=== PATIENT | male | born 2000 | race Caucasian/White ===

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

== ENCOUNTER 2018-01-26 06:53 | Emergency (ER) | payer SELFPAY ==
[~2018-01-26] VITALS: Ht 172.7 cm; Wt 77.3 kg
[~2018-01-26 06:53] MED LIST: PERCOCET 10/3251 TA1 PO
[2018-01-26 06:56] VITALS: BP 125/72; Ht 172.7 cm; Wt 77.3 kg
== END 2018-01-26 08:33 | disposition left against medical advice (07) ==
LOC: D.ER 06:53
DX: H92.02 Otalgia, left ear (principal)

== ENCOUNTER → 2018-04-12 17:36 | Outpatient (CLI) | payer BC ==
[2018-01-26 06:56] VITALS: BMI 25.9
== END | disposition home or self-care (01) ==
LOC: D.MRI 17:30
DX: M25.561 Pain in right knee (principal)

== ENCOUNTER 2018-07-27 05:00 | Day surgery (SDC) | payer BC ==
[2018-01-26 06:56] VITALS: Ht 172.7 cm; Wt 79.4 kg
[~2018-07-27] VITALS: Ht 172.7 cm; Wt 79.4 kg
[2018-07-27 05:21] VITALS: BP 114/75; BMI 26.6
[2018-07-27] MEDS ORDERED: PERCOCET 7.5/321 TAB PO (07:18)
[2018-07-27] MEDS ORDERED: TORADOL10 MG PO (07:18)
--- NOTE | 2018-07-27 10:55 | NUR ---
REC'D FROM RR. ALMAGUER AT BEDSIDE. DRESSING CDI TO LEG. ICE TO DRESSING. RLE NUMB FROM BLOCK. FL TRAY BROUGHT TO PT,
--- NOTE | 2018-07-27 11:20 | NUR ---
TOLERATED DIET. DENIES PAIN. WRITTEN AND VERBAL DC INST. GIVEN TO PT. VERBALIZED UNDERSTANDING. RX CALLED INTO [facility].
--- NOTE | 2018-07-27 11:50 | NUR ---
IV DC'D WITH CATHETER INTACT.
--- NOTE | 2018-07-27 12:00 | NUR ---
DC'D HOME WITH FAMILY VIA PRIVATE VEHICLE. TAKEN TO VEHICLE VIA WC. STABLE AT TIME OF DC.
--- NOTE | 2018-07-27 12:20 | OP ---
PATIENT NAME: DINESH SOLIS MEDICAL RECORD: [id number] :98 LOCATION:[facility] ADMISSION DATE: SURGEON: RUBEN DOW DO DATE OF OPERATION: 07/27/2018 PROCEDURE PERFORMED: Right knee ACL reconstruction with auto and allograft, auto hamstring and a medial meniscal repair. POSTOPERATIVE DIAGNOSIS: Right knee ACL complete rupture and tear and medial meniscal tear, posterior horn. INDICATIONS: Mr. Solis is a 18-year-old male, who had a skateboarding accident about a year ago. He came to my office in March and said he has had knee instability, was giving out on him with turning, and he got an MRI, which indeed showed with positive exam with positive Shaina's and medial joint line tenderness, medial meniscal tear and complete ACL rupture of the femoral condyle. The patient was wanting to wait since he is working to get the reconstruction done. I informed him that he is 18, he probably should get it done. He was aware of the risks and benefits including infection, bleeding, damage to nerves and vessels, need for further surgery, and he signed the consent. SURGEON: Ruben Dow DO DESCRIPTION OF PROCEDURE: The patient was given a block by anesthesia in the preoperative area, taken to the operative suite, laid in supine position. The right lower extremity was prepped and draped in sterile fashion. The left leg was placed in a well leg saini and well-padded brace under the thigh on the left. The right was placed in a leg saini, it was padded as well. He was then prepped and draped in sterile fashion. Time-out was performed. Everyone was in agreement with the correct side, site, patient and procedure. The patient received 2 grams of Ancef preoperatively. We then began getting the autograft over the pes anserine. Careful dissection was made down to the sartorial fascia. This was opened up. A very thin gracilis graft was taken, very small. Then, it was not adequate. We at that time got an anterior tib out of the freezer, but the semitendinosus graft was very good and adequate, so we mixed the two. The graft was prepared on the back table and sized to be an 11. The medial meniscal repair was done at the time as the scope began establishing a lateral portal first with #11 blade scalpel. The skin over the graft was cut with a 15 blade. An 11 blade scalpel was established through the lateral portal. Scope was then entered in the knee and up in suprapatellar pouch. No loose body was seen there. The medial and lateral gutters were inspected and no loose bodies were seen there. The knee was then brought from extension to flexion and the medial compartment was entered. The medial portal was then established with an 18-gauge spinal needle and 11-blade scalpel. Shaver was brought in and some of the fat pad was chewed away. Then, a probe was brought in. The leg had some valgus stress in order to get to the back of the knee and a meniscal tear was seen in the red-red zone. The FasT-Fix from [employer] was then brought in through the medial portal, it was curved one and it was repaired approximately 5 mm apart from each other. Anchors were deployed and had a very nice repair. This repair was checked with the probe and there was no movement of the medial meniscus at that time indicating good repair. We then prepared the notch, cleaned up the old ACL that was indeed torn off. There was no remnant of the ACL on the femur and then left a small remnant on the tibia to direct placement of the tunnel for the tibial tunnel. The guide was OPERATIVE REPORT [id number] DINESH SOLIS then brought in through the lateral portal. The camera was switched to the medial portal and a onel was made in the skin on the distal lateral thigh in order to do the FlipCutter. FlipCutter was then brought in through the guide and then brought back to approximately 25 mm in order to prepare the tunnel for the graft. A nitinol wire was then passed through that and grabbed out of the medial portal and secured with a hemostat. The tibial tunnel was then placed through the medial portal with viewing from the lateral portal and the guide was placed in at 55 degrees. Drill was then brought up through the guide through the graft site incision and first started, we reamed at 7 and then to an 11 for the graft and then the nitinol wire was brought down through the tibial tunnel. The graft was then passed up through the femur and the button flipped on the femur side and then it was toggled up to tighten up the graft. On the tibial side with the sutures, the graft bolt device was used. The graft was then tensioned with 30 cycles to the knee and brought into an extension and graft bolt first dilated with an 8 and then a 10. Graft bolt was then entered in and put into place and the screw. This did not get a great bite and so we used a SwiveLock with the excess sutures on the graft and put a 4.75 SwiveLock down into the tibia fixating the graft. I then went back up to the femur and tightened the toggle more, had a little bit of more tension to give. The graft was then checked and a small wire was seen in the graft. This was from the graft bolt graft. This was removed at that time. A Shaina's and drawer and pivot shift was tested at that time. The knee was very tight and there was no give with the anterior drawer or Shaina's or pivot shift. The sites were then thoroughly irrigated. The poke holes on the femur were closed with 4-0 Monocryl inverted interrupted fashion as well as the 2 portal sites and then sartorial fascia was closed with 2-0 Vicryl in a [id number] fashion, then 2-0 Vicryl on the skin in a simple inverted interrupted fashion, 4-0 Monocryl was then ran on it. Steri-Strips were placed over each of the wound. Adaptic, 4 x 4s, ABD, Webril and Gregorio wrap were then placed on the knee. REMA hose stockinette was placed on the knee. The patient was placed in a knee immobilizer. The tourniquet was up at the beginning of the procedure and was up for exactly 120 minutes. It was let down at the end of the procedure, it was inflated to 350 mmHg throughout the procedure. Complications were none. Blood loss approximately 50 mL. TRANSINT:[id number] Voice Confirmation ID: [id number] DOCUMENT ID: [id number] RUBEN DOW DO at 1220 CC: [id number] DICTATION DATE: 07/27/18 1025 [place] TIER: 07/27/18 1218 [facility] [address] [place] [address]
== END 2018-07-27 12:00 | disposition home or self-care (01) ==
LOC: D.OPS 05:00 → D.PAN 07:30 → D.OPS 07:30
DX: S83.511A Sprain of anterior cruciate ligament of right knee, initial encounter (principal); S83.241A Other tear of medial meniscus, current injury, right knee, initial encounter; Z01.812 Encounter for preprocedural laboratory examination

== ENCOUNTER → 2019-03-26 14:41 | Outpatient (CLI) | payer BC ==
[~2019-03-26 14:41] MED LIST changes: +PERCOCET 7.5/321 TAB PO; +TORADOL10 MG PO
== END | disposition home or self-care (01) ==
LOC: D.MRI 14:41
PROVIDERS: ATTEND Nurse Practitioner Family
DX: M54.5 Low back pain (principal)